=== PATIENT | female | born 1995 | race Caucasian/White ===

== ENCOUNTER 2021-10-11 11:00 | Emergency (ER) | payer BC, SELFPAY ==
[2021-10-11 11:14] VITALS: BP 155/96; PULSE 81; RESP 18; TEMP 37.1; O2SAT 100
--- NOTE | 2021-10-11 11:43 | ED.URI ---
HPI - URI/Sore Throat General Chief Complaint: Upper Respiratory Infection Stated Complaint: Fever/Shortness of Breath Time Seen by Provider: 10/11/21 12:20 Source: patient and RN notes reviewed Mode of arrival: ambulatory Limitations: no limitations History of Present Illness HPI Narrative: 26-year-old female presents with concern for fever of 102, cough, sore throat with chest tightness that started this morning. Reports her boyfriend has similar symptoms and has been tested for Covid, she does not know the results yet. She denies any [id number] intervention. MD elicited complaint: fever, cough and sore throat Related Data Home Medications Medication Instructions Recorded Confirmed No Home Medications 10/11/21 10/11/21 Allergies Allergy/AdvReac Type Severity Reaction Status Date / Time morphine Allergy Anaphylaxis Verified 10/11/21 11:25 Review of Systems Review of Systems: CONSTITUTIONAL: Denies malaise, chills, sweats. Reports fever. EYES: Denies visual changes, redness, or discharge. ENT: Denies rhinorrhea, congestion, sinus pain, otalgia. Reports sore throat. CARDIOVASCULAR: Denies chest pain, palpitations, or edema. RESPIRATORY: Reports cough. Denies dyspnea. GASTROINTESTINAL: Denies abdominal pain, nausea, vomiting, diarrhea SKIN: Denies rash or itching. MUSCULOSKELETAL: Denies myalgia. NEUROLOGIC: Denies headache. All systems reviewed & are unremarkable except as noted in HPI and below PMFSH Comments At time of signature, agree with nursing past medical, surgical, social and family history. There is no relevant family history pertinent to the presenting complaint Exam Narrative: GENERAL: Well-appearing, well-nourished, and in no acute distress. HEAD: Normocephalic EYES: PERRLA, conjunctivae clear ENT: Nares clear. Mucous membranes moist. TM pearly leonardo with sharp light reflex bilaterally; no tragal tenderness. Oropharynx not erythematous without lesions. Tonsils not enlarged and without exudate, no drooling, no hoarseness, no trismus, uvula midline. NECK: Supple. No lymphadenopathy CHEST: Clear to auscultation, breath sounds equal. No wheezing, rhonchi, rales, or stridor. No respiratory distress, speaks in full sentences. HEART: Regular rate and rhythm. No murmur heard. SKIN: Warm, dry, no rash. NEURO: Alert and oriented x3. PSYCH: Normal mood and affect Course Course Emergency Course: Patient is aware of diagnosis, understands and agrees to treatment plan. Anticipatory guidance given. Patient agrees to follow-up as directed and is aware of reasons to seek care at the emergency department. Portions of this record may have been created with voice recognition software Vital Signs Vital signs: Vital Signs Temperature 98.8 F 10/11/21 11:14 Pulse Rate 81 10/11/21 11:14 Respiratory Rate 18 10/11/21 11:14 Blood Pressure 155/96 H 10/11/21 11:14 Pulse Oximetry 100 10/11/21 11:14 Temperature 98.8 F 10/11/21 11:14 Pulse Rate 81 10/11/21 11:14 Respiratory Rate 18 10/11/21 11:14 Blood Pressure 155/96 H 10/11/21 11:14 Pulse Oximetry 100 10/11/21 11:14 Reviewed. MDM - URI/Sore Throat MDM Narrative Medical decision making narrative: Differential diagnosis considered: Weller virus, strep pharyngitis, allergic rhinitis, upper respiratory tract infection, sinusitis, rhinosinusitis, nasopharyngitis. viral pharyngitis, otitis media, otitis externa, pneumonia, bronchitis, viral cough syndrome, viral syndrome, and influenza. Exam findings show no acute concerns or changes; patient is non-toxic appearing and is in no distress. Patient is appropriate for outpatient treatment and follow-up. Lab Data Attestation: I reviewed the patient's lab results. Critical Care Time Critical Care Time Critical Care Time: No Discharge Plan Discharge Clinical Impression: Acute viral syndrome Patient Disposition: Home, Self-Care Condition: Stable Instructions: Viral Syndrome (
== END 2021-10-11 12:43 | disposition home or self-care (01) ==
PROVIDERS: Emergency Provider Nurse Practitioner
DX: B34.9 Viral infection, unspecified (principal); Z20.822 Contact with and (suspected) exposure to COVID-19; J45.909 Unspecified asthma, uncomplicated
CPT/HCPCS: 87426; 99213; C9803; G0463

== ENCOUNTER → 2021-10-13 08:20 | Outpatient (CLI) | payer BC, SELFPAY ==
[2021-10-13 20:43] LABS: SARS-CoV-2 RNA PCR Positive
== END ==
PROVIDERS: Visit Provider Nurse Practitioner
DX: U07.1 COVID-19 (principal)
CPT/HCPCS: C9803; U0003; U0005

== ENCOUNTER 2021-11-20 15:04 | Outpatient (CLI) | payer BC, SELFPAY ==
[2021-11-20 18:48] LABS: Hematocrit 39.7 % (37.0-47.0); Hemoglobin 12.2 g/dL (12.0-15.0); Mean Corpuscular HGB Conc 30.7 g/dl (32-36); Mean Corpuscular Hemoglobin 23.9 pg (26-34); Mean Corpuscular Volume 77.8 fl (80-100); Mean Platelet Volume 11.5 fl (7.4-10.4); Platelet Count Result 293 k/mm3 (150-375); Red Cell Distribution Width 15.2 % (11.5-14.5); White Blood Count 7.5 K/mm3 (4.5-10.0)
[2021-11-20 19:04] LABS: LDL Cholesterol Direct 105 mg/dL
[2021-11-20 19:32] LABS: Hemoglobin A1C 5.4 % (<5.7)
[2021-11-20 19:34] LABS: Alanine Aminotransferase 19 U/L (4-35); Albumin Level 4.3 g/dL (3.5-5.1); Alkaline Phosphatase 85 U/L (38-126); Anion Gap 7 mmol/L (8-16); Aspartate Amino Transferase 22 U/L (14-36); Bilirubin,Total 0.4 mg/dL (0.2-1.3); Blood Urea Nitrogen 8 mg/dL (7-17); Calcium 9.7 mg/dL (8.4-10.2); Carbon Dioxide 28 mmol/L (22-30); Chloride 104 mmol/L (98-107); Cholesterol 170 mg/dL (0-200); Estimated Glomerular Filt Rate > 60; Glucose 88 mg/dL (65-110); HDL Direct 31 mg/dL; Sodium 139 mmol/L (137-145); Triglycerides 136 mg/dL (<150)
== END 2021-11-20 15:05 | disposition home or self-care (01) ==
PROVIDERS: PCP Family Medicine; Visit Provider Family Medicine
DX: Z00.00 Encounter for general adult medical examination without abnormal findings (principal); E66.9 Obesity, unspecified; J45.909 Unspecified asthma, uncomplicated
CPT/HCPCS: 36415; 80053; 80061; 83036; 85027

== ENCOUNTER 2022-02-24 11:50 | Emergency (ER) | payer BC, SELFPAY ==
[2022-02-24 11:58] VITALS: BP 159/78; PULSE 89; RESP 14; TEMP 37.3; O2SAT 99
--- NOTE | 2022-02-24 12:28 | ED.URI ---
HPI - URI/Sore Throat General Chief Complaint: Upper Respiratory Infection Stated Complaint: Chest Congestion/Cough Time Seen by Provider: 02/24/22 12:28 Source: patient and RN notes reviewed Mode of arrival: ambulatory Limitations: no limitations History of Present Illness HPI Narrative: 26-year-old female presents with concern for cough, chest congestion, fever. Reports symptoms started last night. Reports she had a temperature of 104.3. Reports she has been taking DayQuil and NyQuil which help her symptoms. Reports she had to leave work today. She denies shortness of breath, nausea, vomiting, diarrhea. MD elicited complaint: cough Related Data Allergies Allergy/AdvReac Type Severity Reaction Status Date / Time morphine Allergy Anaphylaxis Verified 02/24/22 12:13 Review of Systems Review of Systems: CONSTITUTIONAL: Report malaise, chills, sweats, fever. EYES: Denies visual changes, redness, or discharge. ENT: Reports rhinorrhea, congestion. Denies sinus pain, otalgia and sore throat. CARDIOVASCULAR: Denies chest pain, palpitations, or edema. RESPIRATORY: Reports cough. Denies dyspnea. GASTROINTESTINAL: Denies abdominal pain, nausea, vomiting, diarrhea SKIN: Denies rash or itching. MUSCULOSKELETAL: Denies myalgia. NEUROLOGIC: Denies headache. All systems reviewed & are unremarkable except as noted in HPI and below PMFSH Past Medical History Medical History Asthma Elective x1 Surgical History Surgical History History of tonsillectomy and adenoidectomy Family History Family History Mother Diabetes mellitus Hypertension Heart problem Thyroid disorder Grandparent Breast cancer Diabetes mellitus Heart problem Thyroid disorder Hypertension Cerebrovascular accident Social History Social History Smoking status: Never smoker Alcohol intake: never Substance use: never Gender identity (if verbalized by the patient): Female Agree to blood products: Yes Comments At time of signature, agree with nursing past medical, surgical, social and family history. There is no relevant family history pertinent to the presenting complaint Exam Narrative: GENERAL: Well-appearing, well-nourished, and in no acute distress. HEAD: Normocephalic EYES: PERRLA, conjunctivae clear ENT: Nares clear, clear discharge. Mucous membranes moist. TM pearly leonardo with sharp light reflex bilaterally; no tragal tenderness. Oropharynx not erythematous without lesions. Tonsils not enlarged and without exudate, no drooling, no hoarseness, no trismus, uvula midline. NECK: Supple. No lymphadenopathy CHEST: Clear to auscultation, breath sounds equal. No wheezing, rhonchi, rales, or stridor. No respiratory distress, speaks in full sentences. HEART: Regular rate and rhythm. No murmur heard. SKIN: Warm, dry, no rash. NEURO: Alert and oriented x3. PSYCH: Normal mood and affect Course Course Emergency Course: Patient is aware of diagnosis, understands and agrees to treatment plan. Anticipatory guidance given. Patient agrees to follow-up as directed and is aware of reasons to seek care at the emergency department. Portions of this record may have been created with voice recognition software Level of Care: Express Care Visit Vital Signs Vital signs: Vital Signs Temperature 99.1 F 02/24/22 11:58 Pulse Rate 89 02/24/22 11:58 Respiratory Rate 14 02/24/22 11:58 Blood Pressure 159/78 H 02/24/22 11:58 Pulse Oximetry 99 02/24/22 11:58 Temperature 99.1 F 02/24/22 11:58 Pulse Rate 89 02/24/22 11:58 Respiratory Rate 14 02/24/22 11:58 Blood Pressure 159/78 H 02/24/22 11:58 Pulse Oximetry 99 02/24/22 11:58 Reviewed. MDM - URI/Sore Throat MDM [facility]
== END 2022-02-24 12:55 | disposition home or self-care (01) ==
PROVIDERS: Emergency Provider Nurse Practitioner; PCP Family Medicine
DX: U07.1 COVID-19 (principal); J45.909 Unspecified asthma, uncomplicated
CPT/HCPCS: 87426; 87804; 99213; C9803; G0463

== ENCOUNTER 2025-08-12 11:04 | Outpatient (CLI) | payer BC, SELFPAY ==
[2025-08-12 19:05] LABS: Hematocrit 42.8 % (37.0-47.0); Hemoglobin 12.4 g/dL (12.0-15.0); Mean Corpuscular HGB Conc 29.0 g/dl (32-36); Mean Corpuscular Hemoglobin 23.4 pg (26-34); Mean Corpuscular Volume 80.8 fl (80-100); Platelet Count Result 295 k/mm3 (150-375); Red Blood Count 5.30 M/mm3 (4.2-5.4); White Blood Count 8.3 K/mm3 (4.5-10.0)
[2025-08-12 19:17] LABS: Hemoglobin A1C 5.1 % (<5.7)
[2025-08-12 19:22] LABS: Alanine Aminotransferase 19 U/L (6-35); Albumin Level 4.5 g/dL (3.5-5.1); Alkaline Phosphatase 70 U/L (38-126); Anion Gap 8 mmol/L (4-12); Aspartate Amino Transferase 29 U/L (14-36); Bilirubin,Total 0.5 mg/dL (0.2-1.3); Blood Urea Nitrogen 9 mg/dL (7-17); Calcium 9.3 mg/dL (8.4-10.2); Carbon Dioxide 26 mmol/L (22-30); Chloride 105 mmol/L (98-107); Cholesterol 173 mg/dL (0-200); Estimated Glomerular Filt Rate > 60; Glucose 93 mg/dL (65-110); HDL Direct 30 mg/dL; Potassium 4.6 mmol/L (3.4-5.0); Sodium 139 mmol/L (137-145); Total Protein 8.3 g/dL (6.3-8.2); Triglycerides 170 mg/dL (<150)
[2025-08-12 20:11] LABS: Thyroid Stimulating Hormone 1.080 uIU/mL (0.465-4.680)
== END 2025-08-12 11:05 | disposition home or self-care (01) ==
PROVIDERS: PCP Nurse Practitioner Adult Health; Visit Provider Nurse Practitioner Adult Health
DX: Z00.00 Encounter for general adult medical examination without abnormal findings (principal); E66.9 Obesity, unspecified
CPT/HCPCS: 36415; 80053; 80061; 83036; 84443; 85027

== ENCOUNTER 2025-08-17 07:04 | Outpatient (CLI) | payer BC, SELFPAY ==
[2025-08-17 19:49] LABS: Iron 38 ug/dL (37-170)
[2025-08-17 20:18] LABS: Percent Iron Saturation 10 % (20-50)
[2025-08-17 20:34] LABS: Ferritin 23.10 ng/mL (6.24-137)
== END 2025-08-17 07:05 | disposition home or self-care (01) ==
PROVIDERS: PCP Nurse Practitioner Adult Health; Visit Provider Nurse Practitioner Adult Health
DX: D64.9 Anemia, unspecified (principal)
CPT/HCPCS: 36415; 82728; 83540; 83550